=== PATIENT | female | born 1985 | race African-American/Black ===

== ENCOUNTER 2021-04-09 08:33 | Emergency (ER) | payer MEDICAID ==
[~2021-04-09] VITALS: Ht 165.1 cm; Wt 74.0 kg
[2021-04-09] MEDS ORDERED: IBUPROFEN 600MG TABLET PO ONE (09:00)
[2021-04-09] MEDS ORDERED: NAPR-681 MT (10:27)
[2021-04-09 10:37] VITALS: BP 123/55
== END 2021-04-09 10:38 | disposition home or self-care (01) ==
LOC: ER 08:33
DX: S16.1XXA Strain of muscle, fascia and tendon at neck level, initial encounter (principal); X58.XXXA Exposure to other specified factors, initial encounter; Y93.89 Activity, other specified; Y92.89 Other specified places as the place of occurrence of the external cause
CPT/HCPCS: 70360; 99283

== ENCOUNTER 2021-10-25 11:46 | Emergency (ER) | payer MEDICAID, OTHER ==
[~2021-10-25] VITALS: Ht 162.6 cm; Wt 80.0 kg
[~2021-10-25 11:46] MED LIST: NAPR-681 MT
[2021-10-25 12:24] VITALS: BP 138/54
[2021-10-25] MEDS ORDERED: ONDANSETRON 4MG ODT PO STA (12:33)
[2021-10-25] MEDS ORDERED: MAGNESIUM/ALUMINUM HYDROXIDE/SIMETHICONE 30ML UDC PO STA (12:33)
[2021-10-25] MEDS ORDERED: FAMOTIDINE 20MG TABLET PO ONE (12:45)
[2021-10-25 12:59] LABS: BASOPHILS % 0.8 % (0.0-2.0); EOSINOPHILS % 3.6 % (0.0-5.0); HEMOGLOBIN. 11.5 g/dL (12.0-16.0); LYMPHOCYTES % 45.9 % (20.0-50.0); MEAN CORPUSCULAR HEMOGLOBIN 22.8 pg (28.0-32.0); MEAN CORPUSCULAR VOLUME 73.3 fL (81.0-99.0); MEAN PLATELET VOLUME 8.3 fl (7.4-10.4); MONOCYTES % 9.4 % (2.0-8.0); NEUTROPHILS % 40.3 % (40.0-76.0); PLATELET 323 x1000/uL (130-400); RED BLOOD CELL COUNT 5.04 mill/uL (4.2-5.4); RED CELL DISTRIBUTION WIDTH 13.6 % (11.6-14.6)
[2021-10-25 13:02] LABS: CHLORIDE 105 mEq/L (98-107)
[2021-10-25 13:15] LABS: HCG SCREEN NEGATIVE
== END 2021-10-25 20:00 | disposition left against medical advice (07) ==
LOC: ER 11:46
DX: R11.2 Nausea with vomiting, unspecified (principal); Z20.822 Contact with and (suspected) exposure to COVID-19
CPT/HCPCS: 36415; 80053; 83690; 84703; 85025; 99283; C9803; U0003; U0005

== ENCOUNTER 2024-06-07 07:49 | Emergency (ER) | payer OTHER, MEDICAID ==
[~2024-06-07] VITALS: Ht 165.1 cm; Wt 70.0 kg
[2024-06-07 08:05] VITALS: TEMP 98.3; O2SAT 99
[2024-06-07 08:53] LABS: CHLORIDE 103 mEq/L (98-107); POTASSIUM 2.9 mEq/L (3.5-5.1); SODIUM 137 mEq/L (136-145)
[2024-06-07 08:55] LABS: CALCIUM 9.3 mg/dL (8.7-10.4); CARBON DIOXIDE 29 mEq/L (21-32)
[2024-06-07 08:56] LABS: BASOPHILS % 0.9 % (0.0-2.0); DIFFERENTIAL COMMENT 0; EOSINOPHILS % 8.2 % (0.0-5.0); HEMATOCRIT. 37.4 % (36.0-48.0); HEMOGLOBIN. 11.5 g/dL (12.0-16.0); LYMPHOCYTES % 52.9 % (20.0-50.0); MEAN CORPUSCULAR HEMOGLOBIN 23.7 pg (28.0-32.0); MEAN CORPUSCULAR HGB CONC 30.8 g/dL (31.0-37.0); MEAN CORPUSCULAR VOLUME 77.2 fL (81.0-99.0); MEAN PLATELET VOLUME 8.8 fl (7.4-10.4); MONOCYTES % 7.7 % (2.0-8.0); NEUTROPHILS % 30.3 % (40.0-76.0); PLATELET 282 x1000/uL (130-400); RED BLOOD CELL COUNT 4.85 mill/uL (4.2-5.4); RED CELL DISTRIBUTION WIDTH 13.7 % (11.6-14.6)
[2024-06-07 08:59] LABS: CREATININE 0.7 mg/dL (0.6-1.0)
[2024-06-07 09:00] LABS: GLUCOSE 81 mg/dL (70-105); UREA NITROGEN BLOOD 11 mg/dL (9-23)
[2024-06-07 09:01] LABS: TROPONIN I HIGH SENSITIVITY < 4 ng/L (3.0-34)
[2024-06-07 09:10] LABS: HCG SCREEN NEGATIVE
[2024-06-07 09:56] VITALS: BP 127/77; PULSE 67; RESP 15; O2SAT 100
== END 2024-06-07 09:58 | disposition home or self-care (01) ==
LOC: ER 08:17
DX: R07.89 Other chest pain (principal); Z98.890 Other specified postprocedural states
CPT/HCPCS: 36415; 71045; 80048; 84484; 84703; 85025; 93005; 99285

== ENCOUNTER 2024-06-26 07:27 | Emergency (ER) | payer OTHER, MEDICAID ==
[~2024-06-26] VITALS: Ht 165.1 cm; Wt 69.0 kg
[2024-06-26 07:43] VITALS: BP 126/82; PULSE 91; RESP 16; TEMP 98.3; O2SAT 100
[2024-06-26 08:27] LABS: BASOPHILS % 1.1 % (0.0-2.0); DIFFERENTIAL COMMENT 0; EOSINOPHILS % 8.9 % (0.0-5.0); HEMATOCRIT. 32.2 % (36.0-48.0); HEMOGLOBIN. 10.2 g/dL (12.0-16.0); LYMPHOCYTES % 39.5 % (20.0-50.0); MEAN CORPUSCULAR HGB CONC 31.7 g/dL (31.0-37.0); MEAN CORPUSCULAR VOLUME 75.7 fL (81.0-99.0); MEAN PLATELET VOLUME 8.3 fl (7.4-10.4); MONOCYTES % 11.3 % (2.0-8.0); NEUTROPHILS % 39.2 % (40.0-76.0); PLATELET 339 x1000/uL (130-400); RED BLOOD CELL COUNT 4.25 mill/uL (4.2-5.4); RED CELL DISTRIBUTION WIDTH 13.7 % (11.6-14.6); WHITE BLOOD COUNT 3.3 x1000/uL (4.5-11.0)
[2024-06-26 08:36] LABS: CHLORIDE 107 mEq/L (98-107); POTASSIUM 4.1 mEq/L (3.5-5.1); SODIUM 139 mEq/L (136-145)
[2024-06-26 08:37] LABS: CALCIUM 8.8 mg/dL (8.7-10.4); CARBON DIOXIDE 29 mEq/L (21-32)
[2024-06-26 08:42] LABS: CREATININE 0.7 mg/dL (0.6-1.0); GLUCOSE 85 mg/dL (70-105); UREA NITROGEN BLOOD 9 mg/dL (9-23)
[2024-06-26] MEDS ORDERED: FLUT9.9S BOTHNSTRLS (15:09)
[2024-06-26] MEDS ORDERED: BENZ100C86 MT (15:09)
[2024-06-26 15:15] LABS: CLARITY URINE CLEAR (CLEAR); COLOR URINE YELLOW (YELLOW); GLUCOSE URINE NEGATIVE (NEGATIVE); KETONES URINE NEGATIVE (NEGATIVE); LEUKOCYTE ESTERASE URINE NEGATIVE (NEGATIVE); NITRITE URINE NEGATIVE (NEGATIVE); OCCULT BLOOD URINE TRACE (NEGATIVE); PH URINE 7.5 (4.5-8.0); PROTEIN URINE NEGATIVE (NEGATIVE); SPECIFIC GRAVITY URINE 1.012 (1.005-1.030); UROBILINOGEN URINE 0.2 E.U./dL (0.2-1.0)
[2024-06-26 15:42] LABS: BACTERIA URINE FEW; RBC URINE 0-2 /hpf (0-2); SQUAMOUS EPITHELIAL CELL URINE FEW /lpf (RARE/1+); WBC URINE 0-2 /hpf (0-2); YEAST URINE NONE SEEN
== END 2024-06-26 15:45 | disposition home or self-care (01) ==
LOC: ER 07:43
DX: R05.9 Cough, unspecified (principal)
CPT/HCPCS: 36415; 71045; 80048; 81003; 85025; 99284

== ENCOUNTER 2025-05-08 06:44 | Emergency (ER) | payer MEDICAID, OTHER ==
[~2025-05-08] VITALS: Ht 165.1 cm; Wt 73.8 kg
[~2025-05-08 06:44] MED LIST changes: +BENZ100C86 MT; +FLUT9.9S BOTHNSTRLS
[2025-05-08 07:00] VITALS: TEMP 36.9; O2SAT 100
[2025-05-08] MEDS: ACETAMINOPHEN 325MG TABLET PO ONE (08:06)
[2025-05-08 09:38] VITALS: BP 122/49; PULSE 61; RESP 16; O2SAT 100
== END 2025-05-08 09:39 | disposition home or self-care (01) ==
LOC: ER 06:44
DX: M25.561 Pain in right knee (principal); Z79.899 Other long term (current) drug therapy; W01.190A Fall on same level from slipping, tripping and stumbling with subsequent striking against furniture, initial encounter; Y93.89 Activity, other specified; Y92.89 Other specified places as the place of occurrence of the external cause; Y99.8 Other external cause status
CPT/HCPCS: 73562; 99283

== ENCOUNTER 2025-07-25 09:59 | Emergency (ER) | payer OTHER ==
[~2025-07-25] VITALS: Ht 165.1 cm; Wt 74.0 kg
[2025-07-25 10:06] VITALS: O2SAT 99
[2025-07-25] MEDS ORDERED: CLAR10 MT (13:27)
[2025-07-25] MEDS ORDERED: ISOP30DR11 EACH EAR (13:27)
[2025-07-25] MEDS ORDERED: FLUT9.9S BOTHNSTRLS (13:27)
[2025-07-25] MEDS ORDERED: P50 MT (13:27)
[2025-07-25] MEDS ORDERED: IBUP-1523 MT (13:27)
[2025-07-25 13:37] VITALS: BP 137/77; PULSE 99; RESP 18; TEMP 37.1; O2SAT 99
== END 2025-07-25 13:38 | disposition home or self-care (01) ==
LOC: ER 09:59
DX: J30.9 Allergic rhinitis, unspecified (principal); H69.90 Unspecified Eustachian tube disorder, unspecified ear; Z98.890 Other specified postprocedural states; Z79.899 Other long term (current) drug therapy
CPT/HCPCS: 99283

== ENCOUNTER 2025-07-29 07:19 | Emergency (ER) | payer OTHER ==
[~2025-07-29] VITALS: Ht 165.1 cm; Wt 71.0 kg
[~2025-07-29 07:19] MED LIST changes: +CLAR10 MT; +IBUP-1523 MT; +ISOP30DR11 EACH EAR; +P50 MT
[2025-07-29 07:49] VITALS: O2SAT 100
[2025-07-29 11:26] VITALS: BP 118/79; PULSE 62; RESP 18; TEMP 36.9; O2SAT 98
== END 2025-07-29 11:28 | disposition home or self-care (01) ==
LOC: ER 07:19
DX: H61.22 Impacted cerumen, left ear (principal)
CPT/HCPCS: 70480; 99284